=== PATIENT | male | born 1995 | race Asian ===

== ENCOUNTER 2022-07-28 09:06 | Day surgery (SDC) | payer BC ==
[2022-07-26 11:22] VITALS: BMI 20.1
[2022-07-28] MEDS ORDERED: Oxymetazoline HCl 0.05% (30 ML BOT) ONE ×2 (09:18→11:15)
[2022-07-28] MEDS ORDERED: Lidocaine 1% MPF 2 ML VIAL ONE (09:39)
[2022-07-28] MEDS ORDERED: NEOSTIGMINE 3 MG/3 ML SYR 3 MG/3 ML SYRINGE ONE (11:00)
[2022-07-28] MEDS ORDERED: Rocuronium Bromide 10 MG/ML (10ML VIAL) ONE (11:00)
[2022-07-28] MEDS ORDERED: Lidocaine 1% PF 5 ML VIAL ONE (11:00)
[2022-07-28] MEDS ORDERED: Dexamethasone 20 MG/5 ML VIAL ONE (11:00)
[2022-07-28] MEDS ORDERED: Ondansetron PF 4 MG/2 ML Vial ONE (11:00)
[2022-07-28] MEDS ORDERED: PHENYLEPHRINE-NS 100 MCG/ML 10 ML SYRINGE ONE (11:00)
[2022-07-28] MEDS ORDERED: Glycopyrrolate 0.2 MG/ML 5 ML SYRINGE ONE (11:00)
[2022-07-28] MEDS ORDERED: PROPOFOL 200 MG/20 ML VIAL ONE (11:00)
[2022-07-28] MEDS ORDERED: ePHEDrine 50 MG/ML VIAL ONE (11:00)
[2022-07-28] MEDS ORDERED: Lidocaine 1% (PF) 30 ML VIAL ONE (11:15)
[2022-07-28] MEDS ORDERED: Bacitracin Zinc Ointment 30 gm TUBE ONE (11:15)
[2022-07-28] MEDS ORDERED: Midazolam HCl 2 mg/2 ml Vial ONE (11:17)
[2022-07-28] MEDS ORDERED: fentaNYL PF 100 MCG/2 ML SYRINGE ONE (11:17)
[2022-07-28] MEDS ORDERED: SUGAMMADEX SODIUM 200 MG/2 ML VIAL ONE (13:12)
== END 2022-07-28 15:15 | disposition home or self-care (01) ==
LOC: SDC 09:06
PROVIDERS: ATTEND Specialist
PROC: 09TT8ZZ Resection of Left Frontal Sinus, Via Natural or Artificial Opening Endoscopic (ICD-10-PCS; principal; 2022-07-28)
PROC: 09TL8ZZ Resection of Nasal Turbinate, Via Natural or Artificial Opening Endoscopic (ICD-10-PCS; principal; 2022-07-28)
PROC: 09TV8ZZ Resection of Left Ethmoid Sinus, Via Natural or Artificial Opening Endoscopic (ICD-10-PCS; principal; 2022-07-28)
PROC: 09TU8ZZ Resection of Right Ethmoid Sinus, Via Natural or Artificial Opening Endoscopic (ICD-10-PCS; principal; 2022-07-28)
PROC: 09TS8ZZ Resection of Right Frontal Sinus, Via Natural or Artificial Opening Endoscopic (ICD-10-PCS; principal; 2022-07-28)
PROC: 09SM0ZZ Reposition Nasal Septum, Open Approach (ICD-10-PCS; principal; 2022-07-28)
PROC: 09TQ8ZZ Resection of Right Maxillary Sinus, Via Natural or Artificial Opening Endoscopic (ICD-10-PCS; principal; 2022-07-28)
PROC: 09TR8ZZ Resection of Left Maxillary Sinus, Via Natural or Artificial Opening Endoscopic (ICD-10-PCS; principal; 2022-07-28)
DX: J01.91 Acute recurrent sinusitis, unspecified (principal); J32.8 Other chronic sinusitis; J34.2 Deviated nasal septum; J34.3 Hypertrophy of nasal turbinates; J45.909 Unspecified asthma, uncomplicated; J35.1 Hypertrophy of tonsils; K13.79 Other lesions of oral mucosa
CPT/HCPCS: J1100; J2001; J2250; J2405; J2704; J3490